=== PATIENT | male | born 2000 | race Caucasian/White ===

== ENCOUNTER 2020-06-02 19:53 | Emergency (ER) | payer OTHER, SELFPAY ==
[2020-06-02 19:59] VITALS: BP 182/87; PULSE 104; RESP 18; TEMP 36.3; O2SAT 95; BMI 37.5
--- NOTE | 2020-06-02 20:31 | ED.ABDPAIN ---
HPI - Abdominal Pain General Chief Complaint: Abdominal Pain Stated Complaint: abdomial pain Time Seen by Provider: 06/02/20 20:31 Source: patient Mode of arrival: ambulatory Limitations: no limitations History of Present Illness MD elicited complaint: abdominal pain Onset (ago): minute(s) (40) Pain Consistency: intermittent Location: diffuse Severity: mild Quality: cramping Radiation: epigastric Migration to: no migration Exacerbating factors: nothing Relieving factors: nothing Related Data Home Medications Medication Instructions Recorded Confirmed hydrochlorothiazide 12.5 mg capsule 12.5 mg PO QAM 03/21/20 Allergies Allergy/AdvReac Type Severity Reaction Status Date / Time No Known Allergies Allergy Unverified 03/07/20 16:54 [No Known Allergies*] Review of Systems Review of Systems REVIEW OF SYSTEMS: Pertinent positives and negatives are stated above in the history. GEN: no fevers, chills, fatigue HEENT: no nasal congestion, sore throat, ear pain NEURO: no headache, dizziness, focal weakness PULM: no cough, shortness of breath CV: no chest pain, palpitations, LE edema ABD: no nausea, vomiting, diarrhea : no dysuria, urgency, frequency SKIN: no rash ROS otherwise negative x 10 Physical Exam Vital Signs: Vital Signs: Last Vital Signs Temp 97.3 F 06/02/20 19:59 Pulse 104 H 06/02/20 19:59 Resp 18 06/02/20 19:59 BP 182/87 H 06/02/20 19:59 Pulse Ox 95 06/02/20 19:59 Body Mass Index 37.5 Appearance: Alert. Oriented X3. No acute distress. Eyes: Pupils equal, round and reactive to light. ENT: Pharynx normal. Neck: Normal inspection. Neck supple. CVS: Normal heart rate and rhythm. Pulses normal. Respiratory: No respiratory distress. Breath sounds normal. Abdomen: Soft , mild diffuse upper abdominal tenderness no right upper quadrant tenderness no mass palpable no CVA tenderness bowel sounds are present Skin: Skin warm and dry. Normal skin color. Normal skin turgor. Extremities: No lower extremity edema. Good range of movement Neuro: Oriented X 3. No motor deficit. No sensory deficit. Course Course Course Narrative: Patient has nonspecific abdominal pain no nausea/vomiting is taking p.o. fluids feeling much better now after Bentyl to discharge him home Discharge Plan Discharge Clinical Impression: Abdominal pain Patient Disposition: Home, Self-Care Instructions: Abdominal Pain (ED) Additional Instructions: Drink plenty of fluids Follow with PCP if any concerns PMFSH Past Medical History Medical History HTN (hypertension) Surgical History History of hernia surgery History of tonsillectomy Family History Family History Father Diabetes Hypertension Mother Diabetes Hypertension Maternal Grandmother Cancer Maternal Uncle Stroke Social History Social History Alcohol intake: never Smoked in Last 30 Days: No Use of substances other than those prescribed or required for medical reasons: No Advance Directives: No Advance Directives Information Provided: Yes
[2020-06-02] MEDS: Dicyclomine HCl 10 MG CAPSULE 20 MG PO (21:11)
== END 2020-06-02 22:17 | disposition home or self-care (01) ==
PROVIDERS: Emergency Provider Internal Medicine; PCP Internal Medicine
DX: R10.13 Epigastric pain (principal); R10.9 Unspecified abdominal pain; Z79.899 Other long term (current) drug therapy
CPT/HCPCS: 99283; 99284

== ENCOUNTER 2020-09-03 08:55 | Emergency (ER) | payer OTHER, SELFPAY ==
--- NOTE | ~2020-09-03 | CT_ITS ---
EXAMINATION: CT ABDOMEN AND PELVIS WITH CONTRAST CLINICAL INFORMATION: Right-sided abdominal pain COMPARISON: Previous abdominal ultrasound from earlier the same day TECHNIQUE: Multidetector volumetric images were obtained from the superior aspect of the liver through the pubic symphysis following administration 85 mL of Omnipaque 350 intravenous contrast. Sagittal and coronal reformatted images were obtained on the technologist's workstation. Oral contrast: Yes This CT examination was performed using dose optimization techniques as appropriate, variously including the following: *Automated exposure control *Adjustment of mA and/or kV according to patient size (this includes techniques or standardized protocols for targeted exams where dose is matched to indication/reason for exam; i.e. extremities or head) *Use of iterative reconstruction technique DLP: 1996 mGy-cm FINDINGS: LUNG BASES: The visualized lung bases are unremarkable. LIVER, GALLBLADDER, AND BILIARY TREE: The liver is low in attenuation suggestive of fatty infiltration. There are small gallstones in the gallbladder. The gallbladder is normal in size. The gallbladder wall does not appear thickened. There is no pericholecystic fluid. There is no intra or extrahepatic biliary duct dilatation. PANCREAS: Unremarkable. SPLEEN: Unremarkable. ADRENAL GLANDS: Unremarkable. KIDNEYS AND URETERS: The kidneys are normal in size, shape, and attenuation. No hydronephrosis, hydroureter, or calculi seen. No perinephric stranding. BLADDER: Unremarkable. GASTROINTESTINAL TRACT: The small and large bowel are unremarkable. The appendix is unremarkable. ABDOMINAL WALL: No significant hernia is appreciated. LYMPH NODES: There are small retroperitoneal lymph nodes in the abdomen and pelvis, small bowel mesentery lymph nodes and bilateral inguinal lymph nodes. No enlarged lymph nodes are seen. VASCULAR: Unremarkable. PELVIC VISCERA: Unremarkable. OSSEOUS STRUCTURES: Unremarkable. CT/CT abdomen pelvis w con IMPRESSION: Fatty liver. Small gallstones.
--- NOTE | ~2020-09-03 | US_ITS ---
EXAMINATION: US ABDOMEN LIMITED CLINICAL INFORMATION: Epigastric/right upper quadrant pain. COMPARISON: Previous abdominal ultrasound May 2019 TECHNIQUE: Real-time imaging of the right upper quadrant abdominal viscera. FINDINGS: PANCREAS: The head and body the pancreas are normal. The tail is not well visualized due to bowel gas. LIVER: The liver is normal in size. The liver contour is normal. Liver echotexture is increased. There is a hypoechoic area adjacent to the gallbladder, characteristic location of focal fatty sparing. No other focal liver lesion is seen. There is no intrahepatic biliary duct dilatation seen. GALLBLADDER: There are gallstones in the gallbladder. The gallbladder is normal in size. The gallbladder wall is normal. There is no pericholecystic fluid.. COMMON BILE DUCT: Normal in caliber measuring 0.4 cm in diameter. RIGHT KIDNEY: Normal. No hydronephrosis. No renal calculi or focal parenchymal lesions. The kidney measures 13.7 cm in maximum dimension. FREE FLUID: None. US/US abdomen limited IMPRESSION: Gallstones. Echogenic liver probably representing fatty infiltration. Limited visualization of the tail of the pancreas.
[2020-09-03 09:06] VITALS: BP 151/100; PULSE 112; RESP 18; TEMP 37.1; O2SAT 95; BMI 43.7
--- NOTE | 2020-09-03 09:20 | ED.ABDPAIN ---
HPI - Abdominal Pain General Chief Complaint: Abdominal Pain <William Green NP - Last Filed: 10/03/20 14:11> Stated Complaint: stomach pain <William Green NP - Last Filed: 10/03/20 14:11> Time Seen by Provider: 09/03/20 09:03 <William Green NP - Last Filed: 10/03/20 14:11> Source: patient <William Green NP - Last Filed: 10/03/20 14:11> Mode of arrival: ambulatory <William Green NP - Last Filed: 10/03/20 14:11> Limitations: no limitations <William Green NP - Last Filed: 10/03/20 14:11> History of Present Illness HPI narrative: Pleasant 20-year-old male with history of obesity BMI of 43 and history of hypertension he was on a hypertensive in the past but stopped taking him because he was told BP was okay he presents ambulatory with complaint of epigastric abdominal pain for the past 2 days. States he has history of similar in the past burning-like discomfort he woke up with it. Does have some associated nausea but no vomiting. There is no diarrhea, recent travel or sick contacts. <William Green NP - Last Filed: 10/03/20 14:11> Pertinent past history: none <William Green NP - Last Filed: 10/03/20 14:11> Pain Consistency: intermittent <William Green NP - Last Filed: 10/03/20 14:11> Location: epigastric <William Green NP - Last Filed: 10/03/20 14:11> Severity: moderate <William Green NP - Last Filed: 10/03/20 14:11> Quality: aching <William Green NP - Last Filed: 10/03/20 14:11> Migration to: epigastric <William Green NP - Last Filed: 10/03/20 14:11> Exacerbating factors: eating <William Green NP - Last Filed: 10/03/20 14:11> Relieving factors: nothing <William Green NP - Last Filed: 10/03/20 14:11> Associated symptoms: denies other symptoms <William Green NP - Last Filed: 10/03/20 14:11> Related Data Home Medications: Home Medications Medication Instructions Recorded Confirmed hydrochlorothiazide 12.5 mg capsule 12.5 mg PO QAM 03/21/20 09/09/20 Previous Rx's Medication Instructions Recorded nitrofurantoin monohyd/m-cryst 100 mg PO Q12H 5 Days #10 cap 09/03/20 [Macrobid] omeprazole magnesium [Prilosec OTC] 20 mg PO DAILY 14 Days #14 tab 09/03/20 ondansetron HCl [Zofran] 4 mg PO Q8H PRN #10 tab 09/03/20 psyllium husk 3.4 gram/5.4 gram 1 tbsp PO DAILY 30 Days #660 g 09/09/20 oral powder <William Green NP - Last Filed: 10/03/20 14:11> Allergies/Adverse Reactions: Allergies Allergy/AdvReac Type Severity Reaction Status Date / Time No Known Allergies Allergy Verified 09/16/20 14:56 [No Known Allergies*] <William Green NP - Last Filed: 10/03/20 14:11> Review of Systems Review of Systems Constitutional: No Weight loss, No Fever, No Chills, No Night Sweats, No Fatigue, No Malaise ENT/Mouth: No Hearing loss, No Ear Pain, No Nasal Congestion, No Sinus Pain, No Hoarseness, No sore throat, No Rhinorrhea, No Swallowing Difficulty Eyes: No Eye Pain, No Swelling, No Redness, No Foreign Body, No Discharge, No Vision Changes Cardiovascular: No Chest Pain, No SOB, No Dyspnea on Exertion, No Orthopnea, No Edema, No Palpitations Respiratory: No Cough, No Sputum, No Wheezing, No Smoke Exposure, No Dyspnea Gastrointestinal: + Nausea, No Vomiting, No Diarrhea, No Constipation, + abdominal Pain, No Hematochezia, No Melena Genitourinary: no irregular bleeding, No Dysuria, No Urinary Frequency, No Hematuria, No Urinary Incontinence, No Urgency, No Flank Pain, No Urinary Flow Changes, No Hesitancy Musculoskeletal: No joint pain, No Myalgias, No Joint Swelling Skin: No Skin Lesions, No rash Neuro: No Weakness, No Numbness, No Paresthesias, No Loss of Consciousness, No Dizziness, No Headache Psych: No Social Issues Heme/Lymph: No Bruising, No Bleeding,No Lymphadenopathy Endocrine: No Polyuria, No Polydipsia, No Temperature Intolerance <William Green NP - Last Filed: 10/03/20 14:11> Yes all other systems are reviewed and are negative <William Green NP - Last Filed: 10/03/20 14:11> Physical Exam Vital Signs: Vital Signs: Last Vital Signs Temp 98.7 F 09/03/20 09:06 Pulse 112 H 09/03/20 09:06 Resp 09/03/20 12:00 BP 151/100 H 09/03/20 09:06 Pulse Ox 98 09/03/20 12:00 Body Mass Index 43.7 Reviewed <William Green NP - Last Filed: 10/03/20 14:11> Vital Signs: Last Vital Signs Temp 98.7 F 09/03/20 09:06 Pulse 112 H 09/03/20 09:06 Resp 09/03/20 12:00 BP 151/100 H 09/03/20 09:06 Pulse Ox 98 09/03/20 12:00 Body Mass Index 43.7 <Shiraz Das MD - Last Filed: 10/12/20 07:23> Const: General: cooperative; No acute distress or intoxicated appearing <William Green NP - Last Filed: 10/03/20 14:11> Nutritional Appearance: obese <William Green NP - Last Filed: 10/03/20 14:11> Orientation/consciousness: patient oriented x3 <William Green NP - Last Filed: 10/03/20 14:11> HENMT: Head: Yes normal to inspection <William Green NP - Last Filed: 10/03/20 14:11> Ears: hearing grossly normal bilaterally <William Green NP - Last Filed: 10/03/20 14:11> Eyes: General: appearance normal, both eyes and all related structures <William Green NP - Last Filed: 10/03/20 14:11> Visual Newby: normal visual newby by confrontation <William Green NP - Last Filed: 10/03/20 14:11> Neck: Neck: Yes normal visual inspection, No positive Brudzinski's sign, No positive Kernig's sign and No tender <[facility] Peter - Last Filed: 10/03/20 14:11> Thyroid: Thyroid normal <[facility] Peter [facility] Last Filed: 10/03/20 14:11> Chest: Chest palpation & inspection: normal inspection of the chest <[facility] Peter [facility] Last Filed: 10/03/20 14:11> Resp: Effort & Inspection: normal respiratory effort <[facility] Green - Last Filed: 10/03/20 14:11> Auscultation: clear to auscultation bilaterally <[facility] Green - Last Filed: 10/03/20 14:11> Cardio: Jugular venous distension: no JVD <[facility] Green [facility] Last Filed: 10/03/20 14:11> Rhythm: regular rhythm <[facility] Green [facility] Last Filed: 10/03/20 14:11> Heart sounds: S1 normal heart sound present and S2 normal heart sound present <[facility] Green - Last Filed: 10/03/20 14:11> GI: Inspection: Yes normal to inspection <[facility] Green - Last Filed: 10/03/20 14:11> Palpation (GI): Soft to palpation and Tenderness to palpation present (GI) in the epigastrum <[facility] Green - Last Filed: 10/03/20 14:11> Percussion: Yes normal to percussion <[facility] Green - Last Filed: 10/03/20 14:11> Auscultation: normal bowel sounds <[facility] Green - Last Filed: 10/03/20 14:11> : General: Yes no CVA tenderness <[facility] Green - Last Filed: 10/03/20 14:11> Back/Spine/Pelvis: Back: no CVA tenderness <[facility] Green - Last Filed: 10/03/20 14:11> Skin: General skin exam: no rashes or lesions noted <[facility] Green - Last Filed: 10/03/20 14:11> Neuro: General: patient oriented x3 <[facility] Green - Last Filed: 10/03/20 14:11> Extrem: General: Yes normal to inspection <William Green NP - Last Filed: 10/03/20 14:11> Course Course Course Narrative: I have reviewed the chart <Shiraz Das MD - Last Filed: 10/12/20 07:23> Reevaluation(s) Reevaluation #1: Symptoms resolved after GI cocktail. Gallstones on ultrasound with echogenic liver probably representing fatty infiltrate. Without evidence of cholecystitis, abdominal pelvis CT shows small gallstones without evidence of cholecystitis. Fatty liver. He feels much better would like to go home. Encouraged to take his blood pressure medications with follow-up closely with his primary care doctor and also General surgery. Educated on the need for balance diet, low-fat diet, need for follow-up with general surgeon, return and follow-up instructions. He is otherwise well nontoxic appearing tolerating p.o. intake well. Stable for discharge. <William Green NP - Last Filed: 10/03/20 14:11> MDM - Abdominal Pain Medical Records Attestation: I reviewed the patient's medical records. <William Green NP - Last Filed: 10/03/20 14:11> Lab Data Attestation: I reviewed the patient's lab results. <William Green NP - Last Filed: 10/03/20 14:11> Result diagrams: : 09/03/20 09:33 09/03/20 09:33 <William Green NP - Last Filed: 10/03/20 14:11> Labs: Lab Results 09/03/20 09/03/20 09/03/20 Range/Units 09:33 09:33 09:33 WBC 9.5 (4.8-10.8) X10*3/uL RBC 5.19 (4.60-5.80) X10*6/uL Hgb 13.3 L (14.0-18.0) g/dl Hct 41.8 L (42-52) % MCV 80.5 (80-98) fL MCH 25.6 L (27.0-33.0) pg MCHC 31.8 (31.0-36.0) g/dl RDW 14.9 (11.0-16.0) % Plt Count 436 H (160-400) X10*3/uL MPV 9.9 (9.4-12.4) fL Immature Gran % (Auto) 0.2 (0.0-0.4) % Neut % (Auto) 73.3 H (45-73) % Lymph % (Auto) 15.1 L (20-40) % [place] % (Auto) 9.7 (2-11) % Eos % (Auto) 1.2 (0-4) % Baso % (Auto) 0.5 (0-2) % Lymph # (Auto) 1.4 (1.2-4.9) X10*3/uL [place] # (Auto) 0.9 (0.1-1.2) X10*3/uL Eos # (Auto) 0.1 (0.0-0.4) X10*3/uL Baso # (Auto) 0.1 (0.0-0.2) X10*3/uL Abs Immat Gran (auto) 0.02 (0.00-0.03) X10*3/uL Absolute Neuts (auto) 7.0 (2.0-8.3) X10*3/uL Absolute Nucleated RBC 0.000 (0.0-0.012) X10*3/uL Nucleated RBC % (auto) 0.0 (0.0-0.2) /100WBC Sodium 136 (135-145) mmol/L Potassium 4.3 (3.3-5.1) mmol/L Chloride 102 (96-108) mmol/L Carbon Dioxide 27 (22-29) mmol/L Anion Gap 11 L (12-20) BUN 7 L (9-16) mg/dL Creatinine 0.76 (0.5-1.4) mg/dL Estim Creat Clear Calc 246.2 Estimated GFR > 60 Random Glucose 107 (60-115) mg/dL Calcium 8.9 (8.4-10.2) mg/dL Total Bilirubin 3.3 H (0.0-1.0) mg/dL AST 316 H (5-37) U/L ALT 402 H (0-40) U/L Alkaline Phosphatase 132 H (39-117) U/L Total Protein 7.4 (6.5-8.0) g/dL Albumin 4.1 (3.5-5.0) g/dL Lipase 35 (8-78) U/L Urine Color SHANTA Urine Appearance HAZY Urine pH 6.5 (5.0-8.0) Ur Specific [place] 1.025 (1.005-1.025) Urine Protein 1+ H (NEG-TRACE) MG/DL Urine Glucose (UA) NEG (NEG) MG/DL Urine Ketones NEG (NEG) MG/DL Urine Blood 1+ H (NEG) Urine Nitrite POS H (NEG) Ur Leukocyte Esterase NEG (NEG) Urine RBC 5-9 H (0) /HPF Urine WBC 0-2 (0-4) /HPF Ur Squamous Epith Cells TRACE /LPF Urine Bacteria TRACE /LPF Urine Mucus 2+ /LPF Chlam trachomat DNA PCR (Not Detect.) N.gonorrhoeae DNA (PCR) (Not Detect.) 09/03/20 Range/Units 14:41 WBC (4.8-10.8) X10*3/uL RBC (4.60-5.80) X10*6/uL Hgb (14.0-18.0) g/dl Hct (42-52) % MCV (80-98) fL MCH (27.0-33.0) pg MCHC (31.0-36.0) g/dl RDW (11.0-16.0) % Plt Count (160-400) X10*3/uL MPV (9.4-12.4) fL Immature Gran % (Auto) (0.0-0.4) % Neut % (Auto) (45-73) % Lymph % (Auto) (20-40) % [place] % (Auto) (2-11) % Eos % (Auto) (0-4) % Baso % (Auto) (0-2) % Lymph # (Auto) (1.2-4.9) X10*3/uL [place] # (Auto) (0.1-1.2) X10*3/uL Eos # (Auto) (0.0-0.4) X10*3/uL Baso # (Auto) (0.0-0.2) X10*3/uL Abs Immat Gran (auto) (0.00-0.03) X10*3/uL Absolute Neuts (auto) (2.0-8.3) X10*3/uL Absolute Nucleated RBC (0.0-0.012) X10*3/uL Nucleated RBC % (auto) (0.0-0.2) /100WBC Sodium (135-145) mmol/L Potassium (3.3-5.1) mmol/L Chloride (96-108) mmol/L Carbon Dioxide (22-29) mmol/L Anion Gap (12-20) BUN (9-16) mg/dL Creatinine (0.5-1.4) mg/dL Estim Creat Clear Calc Estimated GFR Random Glucose (60-115) mg/dL Calcium (8.4-10.2) mg/dL Total Bilirubin (0.0-1.0) mg/dL AST (5-37) U/L ALT (0-40) U/L Alkaline Phosphatase (39-117) U/L Total Protein (6.5-8.0) g/dL Albumin (3.5-5.0) g/dL Lipase (8-78) U/L Urine Color Urine Appearance Urine pH (5.0-8.0) Ur Specific [place] (1.005-1.025) Urine Protein (NEG-TRACE) MG/DL Urine Glucose (UA) (NEG) MG/DL Urine Ketones (NEG) MG/DL Urine Blood (NEG) Urine Nitrite (NEG) Ur Leukocyte Esterase (NEG) Urine RBC (0) /HPF Urine WBC (0-4) /HPF Ur Squamous Epith Cells /LPF Urine Bacteria /LPF Urine Mucus /LPF Chlam trachomat DNA PCR NOT DETECTED (Not Detect.) N.gonorrhoeae DNA (PCR) NOT DETECTED (Not Detect.) <William Green ECONOMIC ANALYST - Last Filed: 10/03/20 14:11> Lab Results 09/03/20 09/03/20 09/03/20 Range/Units 09:33 09:33 09:33 WBC 9.5 (4.8-10.8) X10*3/uL RBC 5.19 (4.60-5.80) X10*6/uL Hgb 13.3 L (14.0-18.0) g/dl Hct 41.8 L (42-52) % MCV 80.5 (80-98) fL MCH 25.6 L (27.0-33.0) pg MCHC 31.8 (31.0-36.0) g/dl RDW 14.9 (11.0-16.0) % Plt Count 436 H (160-400) X10*3/uL MPV 9.9 (9.4-12.4) fL Immature Gran % (Auto) 0.2 (0.0-0.4) % Neut % (Auto) 73.3 H (45-73) % Lymph % (Auto) 15.1 L (20-40) % [place] % (Auto) 9.7 (2-11) % Eos % (Auto) 1.2 (0-4) % Baso % (Auto) 0.5 (0-2) % Lymph # (Auto) 1.4 (1.2-4.9) X10*3/uL [place] # (Auto) 0.9 (0.1-1.2) X10*3/uL Eos # (Auto) 0.1 (0.0-0.4) X10*3/uL Baso # (Auto) 0.1 (0.0-0.2) X10*3/uL Abs Immat Gran (auto) 0.02 (0.00-0.03) X10*3/uL Absolute Neuts (auto) 7.0 (2.0-8.3) X10*3/uL Absolute Nucleated RBC 0.000 (0.0-0.012) X10*3/uL Nucleated RBC % (auto) 0.0 (0.0-0.2) /100WBC Sodium 136 (135-145) mmol/L Potassium 4.3 (3.3-5.1) mmol/L Chloride 102 (96-108) mmol/L Carbon Dioxide 27 (22-29) mmol/L Anion Gap 11 L (12-20) BUN 7 L (9-16) mg/dL Creatinine 0.76 (0.5-1.4) mg/dL Estim Creat Clear Calc 246.2 Estimated GFR > 60 Random Glucose 107 (60-115) mg/dL Calcium 8.9 (8.4-10.2) mg/dL Total Bilirubin 3.3 H (0.0-1.0) mg/dL AST 316 H (5-37) U/L ALT 402 H (0-40) U/L Alkaline Phosphatase 132 H (39-117) U/L Total Protein 7.4 (6.5-8.0) g/dL Albumin 4.1 (3.5-5.0) g/dL Lipase 35 (8-78) U/L Urine Color SHANTA Urine Appearance HAZY Urine pH 6.5 (5.0-8.0) Ur Specific [place] 1.025 (1.005-1.025) Urine Protein 1+ H (NEG-TRACE) MG/DL Urine Glucose (UA) NEG (NEG) MG/DL Urine Ketones NEG (NEG) MG/DL Urine Blood 1+ H (NEG) Urine Nitrite POS H (NEG) Ur Leukocyte Esterase NEG (NEG) Urine RBC 5-9 H (0) /HPF Urine WBC 0-2 (0-4) /HPF Ur Squamous Epith Cells TRACE /LPF Urine Bacteria TRACE /LPF Urine Mucus 2+ /LPF Chlam trachomat DNA PCR (Not Detect.) N.gonorrhoeae DNA (PCR) (Not Detect.) 09/03/20 Range/Units 14:41 WBC (4.8-10.8) X10*3/uL RBC (4.60-5.80) X10*6/uL Hgb (14.0-18.0) g/dl Hct (42-52) % MCV (80-98) fL MCH (27.0-33.0) pg MCHC (31.0-36.0) g/dl RDW (11.0-16.0) % Plt Count (160-400) X10*3/uL MPV (9.4-12.4) fL Immature Gran % (Auto) (0.0-0.4) % Neut % (Auto) (45-73) % Lymph % (Auto) (20-40) % [place] % (Auto) (2-11) % Eos % (Auto) (0-4) % Baso % (Auto) (0-2) % Lymph # (Auto) (1.2-4.9) X10*3/uL [place] # (Auto) (0.1-1.2) X10*3/uL Eos # (Auto) (0.0-0.4) X10*3/uL Baso # (Auto) (0.0-0.2) X10*3/uL Abs Immat Gran (auto) (0.00-0.03) X10*3/uL Absolute Neuts (auto) (2.0-8.3) X10*3/uL Absolute Nucleated RBC (0.0-0.012) X10*3/uL Nucleated RBC % (auto) (0.0-0.2) /100WBC Sodium (135-145) mmol/L Potassium (3.3-5.1) mmol/L Chloride (96-108) mmol/L Carbon Dioxide (22-29) mmol/L Anion Gap (12-20) BUN (9-16) mg/dL Creatinine (0.5-1.4) mg/dL Estim Creat Clear Calc Estimated GFR Random Glucose (60-115) mg/dL Calcium (8.4-10.2) mg/dL Total Bilirubin (0.0-1.0) mg/dL AST (5-37) U/L ALT (0-40) U/L Alkaline Phosphatase (39-117) U/L Total Protein (6.5-8.0) g/dL Albumin (3.5-5.0) g/dL Lipase (8-78) U/L Urine Color Urine Appearance Urine pH (5.0-8.0) Ur Specific [place] (1.005-1.025) Urine Protein (NEG-TRACE) MG/DL Urine Glucose (UA) (NEG) MG/DL Urine Ketones (NEG) MG/DL Urine Blood (NEG) Urine Nitrite (NEG) Ur Leukocyte Esterase (NEG) Urine RBC (0) /HPF Urine WBC (0-4) /HPF Ur Squamous Epith Cells /LPF Urine Bacteria /LPF Urine Mucus /LPF Chlam trachomat DNA PCR NOT DETECTED (Not Detect.) N.gonorrhoeae DNA (PCR) NOT DETECTED (Not Detect.) <Shiraz Das MD - Last Filed: 10/12/20 07:23> Imaging Data Abdominal/pelvis CT with IV contrast: Radiologist's impression: [address] [id number] Scan ReportSigned Patient: Rojas Avelar#: [id number]: 2000Acct:[id number]/Sex: 20 / MADM Date: 09/03/20Loc: HO.EDAttending Dr: Ordering Physician: William Green NP Date of Service: 09/03/20 Procedure(s): CT abdomen pelvis w con Accession Number(s): [id number] cc: William Green ECONOMIC ANALYST~ EXAMINATION: CT ABDOMEN AND PELVIS WITH CONTRAST CLINICAL INFORMATION: Right-sided abdominal pain COMPARISON: Previous abdominal ultrasound from earlier the same day TECHNIQUE: Multidetector volumetric images were obtained from the superior aspect of the liver through the pubic symphysis following administration 85 mL of Omnipaque 350 intravenous contrast. Sagittal and coronal reformatted images were obtained on the technologist's workstation. Oral contrast: Yes This CT examination was performed using dose optimization techniques as appropriate, variously including the following: *Automated exposure control *Adjustment of mA and/or kV according to patient size (this includes techniques or standardized protocols for targeted exams where dose is matched to indication/reason for exam; i.e. extremities or head) *Use of iterative reconstruction technique DLP: 1997 mGy-cm FINDINGS: LUNG BASES: The visualized lung bases are unremarkable. LIVER, GALLBLADDER, AND BILIARY TREE: The liver is low in attenuation suggestive of fatty infiltration. There are small gallstones in the gallbladder. The gallbladder is normal in size. The gallbladder wall does not appear thickened. There is no pericholecystic fluid. There is no intra or extrahepatic biliary duct dilatation. PANCREAS: Unremarkable. SPLEEN: Unremarkable. ADRENAL GLANDS: Unremarkable. KIDNEYS AND URETERS: The kidneys are normal in size, shape, and attenuation. No hydronephrosis, hydroureter, or calculi seen. No perinephric stranding. BLADDER: Unremarkable. GASTROINTESTINAL TRACT: The small and large bowel are unremarkable. The appendix is unremarkable. ABDOMINAL WALL: No significant hernia is appreciated. LYMPH NODES: There are small retroperitoneal lymph nodes in the abdomen and pelvis, small bowel mesentery lymph nodes and bilateral inguinal lymph nodes. No enlarged lymph nodes are seen. VASCULAR: Unremarkable. PELVIC VISCERA: Unremarkable. OSSEOUS STRUCTURES: Unremarkable. CT/CT abdomen pelvis w con IMPRESSION: Fatty liver. Small gallstones. Dictated By:LAMAR VALLES MDSigned By:<Electronically signed by LAMAR VALLES MD in [place]>09/03/20 1249 DD/ 1103TD/TT: Conductor/Brakeman: COLTEN <William Green NP - Last Filed: 10/03/20 14:11> Abdominal ultrasound: Radiologist's impression: [address] [id number] ReportSigned Patient: Rojas Avelar#: [id number]: 2000Acct:[id number]/Sex: 20 / MADM Date: 09/03/20Loc: HO.EDAttending Dr: Ordering Physician: William Green NP Date of Service: 09/03/20 Procedure(s): US abdomen limited Accession Number(s): [id number] cc: William Green NP~ EXAMINATION: US ABDOMEN LIMITED CLINICAL INFORMATION: Epigastric/right upper quadrant pain. COMPARISON: Previous abdominal ultrasound May 2019 TECHNIQUE: Real-time imaging of the right upper quadrant abdominal viscera. FINDINGS: PANCREAS: The head and body the pancreas are normal. The tail is not well visualized due to bowel gas. LIVER: The liver is normal in size. The liver contour is normal. Liver echotexture is increased. There is a hypoechoic area adjacent to the gallbladder, characteristic location of focal fatty sparing. No other focal liver lesion is seen. There is no intrahepatic biliary duct dilatation seen. GALLBLADDER: There are gallstones in the gallbladder. The gallbladder is normal in size. The gallbladder wall is normal. There is no pericholecystic fluid.. COMMON BILE DUCT: Normal in caliber measuring 0.4 cm in diameter. RIGHT KIDNEY: Normal. No hydronephrosis. No renal calculi or focal parenchymal lesions. The kidney measures 13.7 cm in maximum dimension. FREE FLUID: None. US/US abdomen limited IMPRESSION: Gallstones. Echogenic liver probably representing fatty infiltration. Limited visualization of the tail of the pancreas. Dictated By:LAMAR VALLES MDSigned By:<Electronically signed by LAMAR VALLES MD in [place]>09/03/20 1207 DD/ 1103TD/TT: Conductor/Brakeman: COLTEN <William Green NP - Last Filed: 10/03/20 14:11> Discharge Plan Discharge Clinical Impression: Gallstones, Transaminitis, Acute UTI <William Green NP - Last Filed: 10/03/20 14:11> Patient Disposition: Home, Self-Care <William Green NP - Last Filed: 10/03/20 14:11> Instructions: Gallstones (ED), Acute Nausea and Vomiting (ED) <William Green NP - Last Filed: 10/03/20 14:11> Additional Instructions: Your blood work showed today that your liver function tests were elevated The CT scan/ultrasound showed gallstones but no evidence of infection or inflammation of the gallbladder Your symptoms are combination of reflux and likely pain from the gallstones I have spoken to our Gastroenterology team recommends that you follow-up closely in the office and return to emergency room based on the precautions that I have reviewed with you. Push fluids Gradually increase her diet as tolerated Avoid any heavy greasy meals, caffeine, caffeinated drinks Eat small portions, avoid eating large meals specifically 2 hours before going to bed Take her anti acid medication in the morning on empty stomach with 8 oz couple water and wait at least 30 minutes to 1 hour before eating breakfast Please follow-up with general surgery/international coordinator as discussed Return to the emergency room if you have any worsening in your symptoms including abdominal pain, vomiting, fever, chest pain, shortness of breath Thank you <William Green NP - Last Filed: 10/03/20 14:11> Prescriptions: New nitrofurantoin monohyd/m-cryst [Macrobid] 100 mg capsule 100 mg PO Q12H 5 Days Qty: 10 RF: 0 ondansetron HCl [Zofran] 4 mg tablet 4 mg PO Q8H PRN (Reason: nausea and vomiting) Qty: 10 RF: 0 omeprazole magnesium [Prilosec OTC] 20 mg tablet,delayed release (DR/EC) 20 mg PO DAILY 14 Days Qty: 14 RF: 0 No Action hydrochlorothiazide 12.5 mg capsule 12.5 mg PO QAM RF: 0 Metamucil 3.4 gram/5.4 gram powder 1 tbsp PO DAILY 30 Days Qty: 660 RF: 0 <William Green NP - Last Filed: 10/03/20 14:11> Referrals: Fran Cheema MD [Primary Care Provider] - 1 week Tsering Vera MD [Physician] - 1 week Gregg Lockett MD [Physician] - 3 days <William Green NP - Last Filed: 10/03/20 14:11> Interventions: ED Discharge Assessment Last Done: 09/03/20 14:52 <William Green NP - Last Filed: 10/03/20 14:11> Discharge Date/Time: 09/03/20 14:56 <William Green NP - Last Filed: 10/03/20 14:11> PMFSH Past Medical History Medical History: Medical History Abnormal liver enzymes [facility] discharge follow-up HTN (hypertension) Hypertension Morbid obesity Morbid obesity <William Green NP - Last Filed: 10/03/20 14:11> Surgical History: Surgical History History of hernia surgery History of tonsillectomy <William Green NP - Last Filed: 10/03/20 14:11> Family History Family History: Family History Father Diabetes Hypertension Mother Diabetes Hypertension Maternal Grandmother Cancer Maternal Uncle Stroke <William Green NP - Last Filed: 10/03/20 14:11> Social History Social History: Social History Alcohol intake: never Smoking Status: Never smoker <William Green NP - Last Filed: 10/03/20 14:11>
[2020-09-03] MEDS: 0.9 % Sodium Chloride 500 ML IV (09:33)
[2020-09-03] MEDS: ondansetron HCL 4 MG/2 ML VIAL IVPUSH (09:44)
[2020-09-03] MEDS: Magnesium Hydrox/Alum Hydrox 30 ML ORAL.SUSP PO (09:44)
[2020-09-03] MEDS: Lidocaine HCl Viscous 2 % 15 ML SOLUTION 10 ML MUCOUS MEM (09:45)
[2020-09-03 09:48] LABS: MANUAL DIFF FLAG NO
[2020-09-03 09:52] LABS: Basophils Absolute Auto 0.1 X10*3/uL (0.0-0.2); Basophils Percent Auto 0.5 % (0-2); Eosinophils Absolute Auto 0.1 X10*3/uL (0.0-0.4); Eosinophils Percent Auto 1.2 % (0-4); Hematocrit 41.8 % (42-52); Hemoglobin 13.3 g/dl (14.0-18.0); Imm Gran Abs Auto 0.02 X10*3/uL (0.00-0.03); Imm Gran Pct Auto 0.2 % (0.0-0.4); Lymphocytes Absolute Auto 1.4 X10*3/uL (1.2-4.9); Lymphocytes Percent Auto 15.1 % (20-40); Mean Corpuscular HGB Conc 31.8 g/dl (31.0-36.0); Mean Corpuscular Hemoglobin 25.6 pg (27.0-33.0); Mean Corpuscular Volume 80.5 fL (80-98); Mean Platelet Volume 9.9 fL (9.4-12.4); Monocytes Absolute Auto 0.9 X10*3/uL (0.1-1.2); Monocytes Percent Auto 9.7 % (2-11); Neutrophils Percent Auto 73.3 % (45-73); Platelet Count 436 X10*3/uL (160-400); Red Blood Count 5.19 X10*6/uL (4.60-5.80); Red Cell Distribution Width 14.9 % (11.0-16.0); White Blood Count 9.5 X10*3/uL (4.8-10.8)
[2020-09-03 10:01] LABS: Glucose Urine UA NEG (NEG); Leukocyte Esterase Urine NEG (NEG); Nitrite Urine POS (NEG); PH 6.5 (5.0-8.0); Specific Gravity - Urine 1.025 (1.005-1.025); UACC Culture Trigger YES; Urine Blood 1+ (NEG); Urine Ketones NEG (NEG); Urine Protein 1+ MG/DL (NEG-TRACE)
[2020-09-03 10:05] LABS: Appearance Urine HAZY; Color Urine AMBER
[2020-09-03 10:14] LABS: Bacteria Urine TRACE /LPF; Mucus Urine 2+ /LPF; Squamous Epithelial Cell Urine TRACE /LPF; UACC CULT YES; WBC Urine 0-2 /HPF (0-4)
[2020-09-03 10:20] LABS: Alanine Aminotransferase 402 U/L (0-40); Albumin Level 4.1 g/dL (3.5-5.0); Alkaline Phosphatase 132 U/L (39-117); Anion Gap 11 (12-20); Aspartate Amino Transferase 316 U/L (5-37); Bilirubin Total 3.3 mg/dL (0.0-1.0); Blood Urea Nitrogen 7 mg/dL (9-16); Calcium 8.9 mg/dL (8.4-10.2); Carbon Dioxide 27 mmol/L (22-29); Chloride 102 mmol/L (96-108); Creatinine Clr Calc Pharmacy 246.2; Estimated Glomerular Filt Rate > 60; Glucose Random 107 mg/dL (60-115); Lipase 35 U/L (8-78); Potassium 4.3 mmol/L (3.3-5.1); Sodium 136 mmol/L (135-145); Total Protein 7.4 g/dL (6.5-8.0)
[2020-09-03 12:00] VITALS: RESP 16; O2SAT 98
[2020-09-03 16:40] LABS: CT PCR NOT DETECTED (Not Detect.); NG PCR NOT DETECTED (Not Detect.)
== END 2020-09-03 14:56 | disposition home or self-care (01) ==
PROVIDERS: Nurse Practitioner Primary Care; Emergency Provider Emergency Medicine; PCP Internal Medicine
DX: K80.80 Other cholelithiasis without obstruction (principal); R74.01 Elevation of levels of liver transaminase levels; R11.2 Nausea with vomiting, unspecified; I10 Essential (primary) hypertension
CPT/HCPCS: 36415; 74177; 76705; 80053; 81001; 83690; 85025; 87086; 87491; 87591; 96361; 96374; 99284; J2405; Q9967

== ENCOUNTER → 2020-09-16 14:45 | Outpatient (BNVA) | payer OTHER, SELFPAY | PROVIDERS: PCP Internal Medicine; Visit Provider Surgery | DX: K80.20 Calculus of gallbladder without cholecystitis without obstruction (principal); E66.01 Morbid (severe) obesity due to excess calories; R74.8 Abnormal levels of other serum enzymes | CPT/HCPCS: 99202 ==

== ENCOUNTER → 2020-10-14 09:29 | Outpatient (BNVA) | payer OTHER, SELFPAY | PROVIDERS: PCP Internal Medicine; Visit Provider Internal Medicine Gastroenterology ==

== ENCOUNTER 2020-12-03 16:50 | Emergency (ER) | payer OTHER, SELFPAY ==
--- NOTE | 2020-12-03 | ECG_ITS ---
Test Reason : CHESTPAIN Blood Pressure : / mmHG Vent. Rate : 099 BPM Atrial Rate : 099 BPM P-R Int : 120 ms QRS Dur : 108 ms QT Int : 344 ms P-R-T Axes : 026 004 077 degrees QTc Int : 441 ms Normal sinus rhythm Nonspecific T wave abnormality Abnormal ECG When compared with ECG of 12-JUN-2019 04:27, T wave inversion no longer evident in Lateral leads Referred By: Kilo Mendez Electronically Signed By:AJITH MELISSA
--- NOTE | ~2020-12-03 | XR_ITS ---
EXAMINATION: XR CHEST CLINICAL INFORMATION: Chest pain COMPARISON: None TECHNIQUE: Frontal view of the chest was obtained. FINDINGS: No significant abnormality is noted involving the heart, lungs, mediastinum, bony thorax or soft tissues. XR/XR chest 1V IMPRESSION: Unremarkable examination.
[2020-12-03 17:21] VITALS: BP 198/97; PULSE 104; RESP 18; TEMP 35; O2SAT 98; BMI 64.4
--- NOTE | 2020-12-03 17:26 | PC.NURSE ---
[facility] AWARE OF CURRENT VITALS
[2020-12-03 18:05] LABS: MANUAL DIFF FLAG NO
[2020-12-03 18:10] LABS: Basophils Percent Auto 0.4 % (0-2); Eosinophils Absolute Auto 0.1 X10*3/uL (0.0-0.4); Eosinophils Percent Auto 0.6 % (0-4); Hematocrit 40.4 % (42-52); Hemoglobin 12.8 g/dl (14.0-18.0); Imm Gran Abs Auto 0.03 X10*3/uL (0.00-0.03); Imm Gran Pct Auto 0.4 % (0.0-0.4); Lymphocytes Absolute Auto 1.2 X10*3/uL (1.2-4.9); Lymphocytes Percent Auto 15.5 % (20-40); Mean Corpuscular HGB Conc 31.7 g/dl (31.0-36.0); Mean Corpuscular Hemoglobin 25.4 pg (27.0-33.0); Mean Corpuscular Volume 80.3 fL (80-98); Mean Platelet Volume 9.7 fL (9.4-12.4); Monocytes Absolute Auto 0.9 X10*3/uL (0.1-1.2); Monocytes Percent Auto 11.3 % (2-11); Neutrophils Absolute Auto 5.7 X10*3/uL (2.0-8.3); Neutrophils Percent Auto 71.8 % (45-73); Platelet Count 383 X10*3/uL (160-400); Red Blood Count 5.03 X10*6/uL (4.60-5.80); Red Cell Distribution Width 15.4 % (11.0-16.0); White Blood Count 7.9 X10*3/uL (4.8-10.8)
[2020-12-03 18:29] LABS: Anion Gap 12 (12-20); Blood Urea Nitrogen 8 mg/dL (9-16); Calcium 9.2 mg/dL (8.4-10.2); Carbon Dioxide 26 mmol/L (22-29); Chloride 106 mmol/L (96-108); Creatinine Clr Calc Pharmacy 332.4; Estimated Glomerular Filt Rate > 60; Glucose Random 102 mg/dL (60-115); Potassium 4.4 mmol/L (3.3-5.1); Sodium 140 mmol/L (135-145)
[2020-12-03 18:35] LABS: Troponin-I High Sensitivity < 3.5 ng/L (<3.5-35.0)
[2020-12-03 21:02] LABS: Troponin-I High Sensitivity < 3.5 ng/L (<3.5-35.0)
[2020-12-03 22:36] VITALS: BP 154/75; PULSE 103; RESP 16
--- NOTE | 2020-12-03 22:42 | ED_ITS ---
HPI - Chest Pain General Chief Complaint: Chest Pain Stated Complaint: cp, abd pain Time Seen by Provider: 12/03/20 22:42 Source: patient Mode of arrival: ambulatory Limitations: no limitations History of Present Illness HPI narrative: Patient obese with history of her gallstones noticed pain in epigastric area since morning going to the mid chest with no nausea vomiting or diarrhea no radiation of pain to the left arm which are no diaphoresis. MD complaint: chest pain Related Data Home Medications Medication Instructions Recorded Confirmed hydrochlorothiazide 12.5 mg capsule 12.5 mg PO QAM 03/21/20 09/09/20 Previous Rx's Medication Instructions Recorded nitrofurantoin monohyd/m-cryst 100 mg PO Q12H 5 Days #10 cap 09/03/20 [Macrobid] omeprazole magnesium [Prilosec OTC] 20 mg PO DAILY 14 Days #14 tab 09/03/20 ondansetron HCl [Zofran] 4 mg PO Q8H PRN #10 tab 09/03/20 psyllium husk 3.4 gram/5.4 gram 1 tbsp PO DAILY 30 Days #660 g 09/09/20 oral powder Allergies Allergy/AdvReac Type Severity Reaction Status Date / Time No Known Allergies Allergy Verified 10/14/20 09:29 [No Known Allergies*] Review of Systems Review of Systems: Constitutional : No Weight loss, No Fever, No Chills ENT/Mouth : No sore throat, No Rhinorrhea Eyes: No Eye Pain, No Swelling Cardiovascular : + Chest Pain, no palpitations Respiratory : No Cough, No Sputum, no shortness of breath Gastrointestinal : no Nausea, No Vomiting, No Diarrhea, No abdominal Pain, no black stools Genitourinary : No Dysuria, No Urinary Frequency Musculoskeletal : No joint pain, No Myalgias, No Joint Swelling Skin : No Skin Lesions, No rash Neuro : No Weakness, No Numbness, No Dizziness, No Headache Psych : No Anxiety/Panic, No Depression Heme/Lymph: No Bruising, No Lymphadenopathy Endocrine : No Polyuria, No Polydipsia All other systems reviewed and are negative FOR[facility]LY [facility] Past Medical History Medical History Abnormal liver enzymes [facility] discharge follow-up HTN (hypertension) Hypertension Morbid obesity Morbid obesity Surgical History History of hernia surgery History of tonsillectomy Family History Family History Father Diabetes Hypertension Mother Diabetes Hypertension Maternal Grandmother Cancer Maternal Uncle Stroke Social History Social History Household Members: Family Alcohol intake: current Alcohol intake frequency: holidays/special occasions only Substance Use Type: Marijuana Advance Directives: No Advance Directives Information Provided: Yes Physical Exam Vital Signs: Vital Signs: Last Vital Signs Temp 95.0 F L 12/03/20 17:21 Pulse 103 H 12/03/20 22:36 Resp 16 12/03/20 22:36 BP 154/75 H 12/03/20 22:36 Pulse Ox 98 12/03/20 17:21 Body Mass Index 64.4 Appearance: Alert. Oriented X3. No acute distress. Eyes: PERRLA, No Nystagmus ENT: Pharynx normal. Oral Mucosa moist Neck: Normal inspection. Neck supple. CVS: Normal heart rate and rhythm. Pulses normal. Respiratory: No respiratory distress. Equal air entry bilateral, no wheezing/rales/rhonchi Abdomen: Soft and mild epigastric tenderness Bowel sounds are present, no mass palpable, no CVA tenderness Skin: Skin warm and dry. Normal skin color. Normal skin turgor. Extremities: No lower extremity edema. No calf tenderness Neuro: Oriented X 3. No motor deficit. No sensory deficit.No cerebellar signs , cranial nerves II-XII intact MDM - Chest Pain MDM Narrative Medical decision making narrative: Patient has atypical chest pain 2 sets of high sensitive troponin negative EKG normal likely from gallstone at this time patient is feeling much better will discharge him home Lab Data Attestation: I reviewed the patient's lab results. Result diagrams: 12/03/20 17:56 12/03/20 17:56 Labs: Lab Results 12/03/20 12/03/20 12/03/20 Range/Units 17:56 17:56 17:56 WBC 7.9 (4.8-10.8) X10*3/uL RBC 5.03 (4.60-5.80) X10*6/uL Hgb 12.8 L (14.0-18.0) g/dl Hct 40.4 L (42-52) % MCV 80.3 (80-98) fL MCH 25.4 L (27.0-33.0) pg MCHC 31.7 (31.0-36.0) g/dl RDW 15.4 (11.0-16.0) % Plt Count 383 (160-400) X10*3/uL MPV 9.7 (9.4-12.4) fL Immature Gran % (Auto) 0.4 (0.0-0.4) % Neut % (Auto) 71.8 (45-73) % Lymph % (Auto) 15.5 L (20-40) % [place] % (Auto) 11.3 H (2-11) % Eos % (Auto) 0.6 (0-4) % Baso % (Auto) 0.4 (0-2) % Lymph # (Auto) 1.2 (1.2-4.9) X10*3/uL [place] # (Auto) 0.9 (0.1-1.2) X10*3/uL Eos # (Auto) 0.1 (0.0-0.4) X10*3/uL Baso # (Auto) 0.0 (0.0-0.2) X10*3/uL Abs Immat Gran (auto) 0.03 (0.00-0.03) X10*3/uL Absolute Neuts (auto) 5.7 (2.0-8.3) X10*3/uL Absolute Nucleated RBC 0.000 (0.0-0.012) X10*3/uL Nucleated RBC % (auto) 0.0 (0.0-0.2) /100WBC Hold Blue Top SEE NOTE Sodium 140 (135-145) mmol/L Potassium 4.4 (3.3-5.1) mmol/L Chloride 106 (96-108) mmol/L Carbon Dioxide 26 (22-29) mmol/L Anion Gap 12 (12-20) BUN 8 L (9-16) mg/dL Creatinine 0.73 (0.5-1.4) mg/dL Estim Creat Clear Calc 332.4 Estimated GFR > 60 Random Glucose 102 (60-115) mg/dL Calcium 9.2 (8.4-10.2) mg/dL Troponin I High Sens (<3.5-35.0) ng/L 12/03/20 12/03/20 Range/Units 17:56 20:21 WBC (4.8-10.8) X10*3/uL RBC (4.60-5.80) X10*6/uL Hgb (14.0-18.0) g/dl Hct (42-52) % MCV (80-98) fL MCH (27.0-33.0) pg MCHC (31.0-36.0) g/dl RDW (11.0-16.0) % Plt Count (160-400) X10*3/uL MPV (9.4-12.4) fL Immature Gran % (Auto) (0.0-0.4) % Neut % (Auto) (45-73) % Lymph % (Auto) (20-40) % [place] % (Auto) (2-11) % Eos % (Auto) (0-4) % Baso % (Auto) (0-2) % Lymph # (Auto) (1.2-4.9) X10*3/uL [place] # (Auto) (0.1-1.2) X10*3/uL Eos # (Auto) (0.0-0.4) X10*3/uL Baso # (Auto) (0.0-0.2) X10*3/uL Abs Immat Gran (auto) (0.00-0.03) X10*3/uL Absolute Neuts (auto) (2.0-8.3) X10*3/uL Absolute Nucleated RBC (0.0-0.012) X10*3/uL Nucleated RBC % (auto) (0.0-0.2) /100WBC Hold Blue Top Sodium (135-145) mmol/L Potassium (3.3-5.1) mmol/L Chloride (96-108) mmol/L Carbon Dioxide (22-29) mmol/L Anion Gap (12-20) BUN (9-16) mg/dL Creatinine (0.5-1.4) mg/dL Estim Creat Clear Calc Estimated GFR Random Glucose (60-115) mg/dL Calcium (8.4-10.2) mg/dL Troponin I High Sens < 3.5 < 3.5 (<3.5-35.0) ng/L ECG Data ECG #1: Attestation: I personally reviewed and interpreted this ECG as follows: Interpretation: Normal sinus rhythm heart rate 99 beats per minute nonspecific T-wave changes normal intervals normal axis no acute ischemia Discharge Plan Discharge Clinical Impression: Atypical chest pain Patient Disposition: Home, Self-Care Instructions: Chest Pain (ED) Additional Instructions: The chest pain is not from the heart. Take ibuprofen for pain Follow up with PCP Prescriptions: No Action nitrofurantoin monohyd/m-cryst [Macrobid] 100 mg capsule 100 mg PO Q12H 5 Days Qty: 10 RF: 0 ondansetron HCl [Zofran] 4 mg tablet 4 mg PO Q8H PRN (Reason: nausea and vomiting) Qty: 10 RF: 0 omeprazole magnesium [Prilosec OTC] 20 mg tablet,delayed release (DR/EC) 20 mg PO DAILY 14 Days Qty: 14 RF: 0 hydrochlorothiazide 12.5 mg capsule 12.5 mg PO QAM RF: 0 Metamucil 3.4 gram/5.4 gram powder 1 tbsp PO DAILY 30 Days Qty: 660 RF: 0 Interventions: ED Discharge Assessment Last Done: 12/03/20 22:55 Discharge Date/Time: 12/03/20 22:56
--- NOTE | 2020-12-03 22:46 | PC.NURSE ---
MD at bedside discussing results and plan for DC home.
[2020-12-03] MEDS: Ibuprofen 600 MG TABLET PO (22:52)
--- NOTE | 2020-12-03 22:53 | PC.NURSE ---
Pt medicated per MAR.
== END 2020-12-03 22:56 | disposition home or self-care (01) ==
PROVIDERS: Emergency Provider Internal Medicine; PCP Internal Medicine
DX: R07.89 Other chest pain (principal); I10 Essential (primary) hypertension; Z79.899 Other long term (current) drug therapy
CPT/HCPCS: 36415; 71045; 80048; 84484; 85025; 93005; 99283; 99284

== ENCOUNTER 2023-06-04 09:57 | Outpatient (AMB) | payer OTHER, SELFPAY ==
--- NOTE | 2023-06-04 09:59 | MHC.PC.OV ---
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 Assistant Required: No Accompanied by: Self / Same As Patient Allergies No Known Allergies [No Known Allergies*] Allergy (Verified 06/04/23 11:11) Medication List - Last Reconciled 06/04/23 by Fran Cheema MD No Known Home Meds Tobacco use date assessed: 06/04/23 Dental Screening Dental Screen Date: 06/04/23 Did you have a dental visit in the last 12 months?: No Did you have a dental problem in the last 6 months where you did not have access to dental care?: No Was dental information given to patient?: Patient has dentist HPI ELECTRONICS SPECIALIST/ reestablish care HPI Details Patient comes in today to reestablish care - was last seen over 2 years ago in 07/2019 States that he continues to struggle with recurrent ingrown toenails and presently has one on his left big toe - would like to get a referral to see podiatry again for this issue Adds that he had gallbladder surgery done back in December 2022 at [facility] Was reportedly advised that he developed hypoxemia during his cholecystectomy and he is advised to speak with his PCP about getting a sleep study done to check him out for CHRISTIE Patient states that he feels okay He denies any headaches or dizziness Denies any chest pains, no SOB No nausea/vomiting, no abdominal pain No change in bowel habits noted He denies any acute urinary symptoms [facility] Medical History (Updated 06/06/23 @ 17:55 by Fran Cheema MD) Morbid obesity with BMI of 50.0-59.9, adult Abnormal liver enzymes Morbid obesity Morbid obesity [place] Hypertension Hospital discharge follow-up HTN (hypertension) Surgical History (Updated 06/04/23 @ 11:09 by Fran Cheema MD) Hx of cholecystectomy (~12/28/22) History of tonsillectomy History of hernia surgery Family History Father Diabetes Hypertension Mother Diabetes Hypertension Maternal Grandmother Cancer Maternal Uncle Stroke Social History Household Members: Family Both parents involved: Yes Housing: House Alcohol intake: current Alcohol intake frequency: holidays/special occasions only e-Cigarette/Vaping Use: Never Used Substance Use Type: Marijuana service: No Current occupational status: employed Cognitive needs: No Hearing needs: No Vision needs: No Questionnaire PHQ-9 Over the last 2 weeks, how often have you been bothered by any of the following problems? 1. Little interest or pleasure in doing things: not at all 2. Feeling down, depressed, or hopeless: not at all 3. Trouble falling or staying asleep, or sleeping too much: not at all 4. Feeling tired or having little energy: not at all 5. Poor appetite or overeating: not at all 6. Feeling bad about yourself - or that you are a failure or have let yourself or your family down: not at all 7. Trouble concentrating on things, such as reading the newspaper or watching television: not at all 8. Moving or speaking so slowly that other people could have noticed. Or the opposite - being so fidgety or restless that you have been moving around a lot more than usual: not at all 9. Thoughts that you would be better off or of hurting yourself in some way: not at all Total score: 0 Depression Screening Interpretation: Negative Depression Screening Done: Yes 10546 - PHQ-9 Billing: Yes Source: Developed by Drs. Medhat Lundberg, Yany Esquivel, Micha Bourgeois and colleagues, with an educational gaby from [employer]. Thrive Questionnaire Date Thrive assessed: 06/04/23 I am a: Patient What is your living situation today?: I have a steady place to live Within the past 12 months, did the food you bought not last and you didn't have the money to get more?: Never true Within the past 12 months, did you worry whether your food would run out before you got money to buy more?: Never true Do you have trouble paying for medicines?: No Do you have trouble getting transportation to medical appointments?: No Do you have trouble paying your heating and electricity bill?: No Do you have trouble taking care of your child, family member or friend?: No Do you have trouble with day-to-day activities such as bathing, preparing meals, shopping, managing finances, etc.?: No Are you currently unemployed and looking for a job?: No Are you interested in more education?: No Please select the resources that you would like help with: None Currently or been in a relationship where the following occur: no concerns reported AUDIT C Alcohol Use Questionnaire (AUDIT-C) 1. How often do you have a drink containing alcohol?: Never 2. How many drinks containing alcohol do you have on a typical day when you are drinking?: 1 or 2 (0) 3. How often do you have six or more drinks on one occasion?: Never (0) Total Score: 0 Score Reviewed/Action Taken: Yes JOSH-7 AMB Questionnaire JOSH-7 Date JOSH - 7 assessed: 06/04/23 Feeling nervous, anxious, or on edge: 0 = Not at all Not being able to stop or control worryin = Not at all Worrying too much about different things: 0 = Not at all Trouble relaxin = Not at all Being so restless that it is hard to sit still: 0 = Not at all Becoming easily annoyed or irritable: 0 = Not at all Feeling afraid as if something awful might happen: 0 = Not at all Total JOSH-7 score (0-4 normal; 5-9 mild; 10-14 moderate; 15-21 severe): 0 Source: Developed by Drs. Medhat Lundberg, Yany Esquivel, Micha Bourgeois and colleagues, with an educational gaby from [employer]. Review of Systems Const Denies chills, Denies fatigue, Denies fever(s), Denies headache(s), Denies malaise and Denies weakness Eyes Denies blurry vision, Denies change in vision, Denies irritation and Denies itchy eyes ENT Denies dysphagia, Denies dizziness, Denies otalgia, Denies headache(s), Denies nasal congestion, Denies neck pain, Denies odynophagia and Denies sore throat Card Denies chest pain, Denies rapid heart rate, Denies irregular heart rhythm, Denies palpitations and Denies dyspnea Resp Denies chest congestion, Denies cough, Denies dyspnea and Denies wheezing GI Denies abdominal pain, Denies bloating, Denies constipation, Denies dysphagia, Denies heartburn, Denies diarrhea, Denies nausea, Denies odynophagia and Denies vomiting Denies hematuria, Denies difficulty urinating, Denies dysuria, Denies urinary frequency and Denies urinary urgency Musc Denies back pain, Denies arthralgias, Denies joint swelling, Denies muscle weakness and Denies neck pain Skin/Breast Details: (+) ingrown toenail of the left big toe Denies change in pigmentation, Denies lesions, Denies rash and Denies unusual bruising Neuro Denies dizziness, Denies headache(s), Denies paresthesias and Denies weakness Endo Denies fatigue and Denies palpitations Aller/Immun Denies itchy eyes and Denies wheezing Physical exam (Primary Care) Vital Signs: Last Vital Signs Pulse 93 06/04/23 10:00 BP 138/82 06/04/23 10:00 Pulse Ox 95 06/04/23 10:00 Oxygen Delivery Method Room Air 06/04/23 10:00 BMI result Body Mass Index 55.9 Tobacco/Smoking Status: Tobacco use Status Tobacco use date assessed 06/04/23 06/04/23 10:02 e-Cigarette/Vaping Use Never Used 06/04/23 10:02 PHQ-9: PHQ-9 Score PHQ-9: Total score 0 06/04/23 11:08 Depression Screening Interpretation: Negative Thrive Assessment: Date of Thrive Assessment Date Thrive assessed 06/04/23 06/04/23 10:02 Currently or been in a relationship where the following occur: no concerns reported Const General: no acute distress, alert and awake Orientation/consciousness: patient oriented x3 HENMT Head: Yes normocephalic and Yes atraumatic Ears: external ears normal, TM's normal bilaterally and EAC's normal General nose exam: No nasal discharge present Face and sinus: Yes normal facial exam and Yes sinuses nontender Teeth and gingiva: dentition normal Throat: Yes posterior oropharynx normal and Yes tonsils normal (no TP congestion) Eyes Eyelids: Yes eyelids normal Conjunctivae: conjunctivae normal Pupils: Equal, round and reactive pupils present EOM: EOMs intact bilaterally Neck Neck: Yes no lymphadenopathy and Yes supple Thyroid: Thyroid normal Resp Auscultation: clear to auscultation bilaterally, no rales and no wheezes Cardio Rate: regular rate Rhythm: regular rhythm Heart sounds: no murmurs GI Palpation (GI): Soft to palpation, nontender and No hepatosplenomegaly present Auscultation: normal bowel sounds General: Yes no CVA tenderness Back/Spine/Pelvis Back: no CVA tenderness Thoracic/Lumbar Spine: thoracic and lumbar spine normal to inspection Skin Lesions: no lesions Rashes: no rashes Neuro General: patient oriented x3, moves all extremities, no focal motor deficits and CN's II-XI intact bilaterally Cranial nerves: Yes Equal, round and reactive pupils present Cognition (Neuro): normal cognition Gait exam (Neuro): Normal gait present Extrem General: Yes no clubbing, cyanosis or edema Left lower extremity: foot ((+) ingrown nail over the lateral side of the big toe on the left foot) Assessment and Plan Assessment & Plan (1) Annual physical exam: Code(s): Z00.00 - Encounter for general adult medical examination without abnormal findings Plan: Check labs (2) Elevated blood pressure reading: Code(s): R03.0 - Elevated blood-pressure reading, without diagnosis of hypertension Plan: Reinforced low sodium diet Advised that his systolic BP should ideally be less than 120 mm; discussed that it is currently higher than normal and may be related to his weight as well as diet Patient is instructed to have his blood pressure monitored regularly (3) Anemia: Code(s): D64.9 - Anemia, unspecified Qualifiers: Anemia type: unspecified type Qualified Code(s): D64.9 - Anemia, unspecified Plan: He has been noted to have mild anemia chronically on his past labs; there is also mild hypochromia frequently but no microcytosis noted Will send him for Hgbelectrophoresis for further evaluation (4) Ingrown toenail of left foot: Code(s): L60.0 - Ingrowing nail Plan: Will refer him to podiatry for further evaluation and management of his recurrent ingrown toenail (5) Hypoxemia during surgery: Code(s): I97.88 - Other intraoperative complications of the circulatory system, not elsewhere classified; R09.02 - Hypoxemia Plan: Will refer him to Sleep Medicine for further evaluation and management - suspect that he may have some degree of CHRISTIE (6) Morbid obesity with BMI of 50.0-59.9, adult: Code(s): E66.01 - Morbid (severe) obesity due to excess calories; Z68.43 - Body mass index [BMI] 50.0-59.9, adult Plan: Reinforced diet/exercise as tolerated/lose weight Plan Follow up in 6 months Orders: Orders Complete Blood Count Auto Diff 06/04/23 E66.01 - Morbid (severe) obesity due to excess calories, Z00.00 - Encounter for general adult medical examination without abnormal findings, Z68.43 - Body mass index [BMI] 50.0-59.9, adult Lipid Panel 06/04/23 E66.01 - Morbid (severe) obesity due to excess calories, E78.00 - Pure hypercholesterolemia, unspecified, Z00.00 - Encounter for general adult medical examination without abnormal findings, Z68.43 - Body mass index [BMI] 50.0-59.9, adult TSH reflex Free T4 06/04/23 E66.01 - Morbid (severe) obesity due to excess calories, Z00.00 - Encounter for general adult medical examination without abnormal findings, Z68.43 - Body mass index [BMI] 50.0-59.9, adult UA CC w/rflx Micro + Cult 06/04/23 E66.01 - Morbid (severe) obesity due to excess calories, R30.0 - Dysuria, Z00.00 - Encounter for general adult medical examination without abnormal findings, Z68.43 - Body mass index [BMI] 50.0-59.9, adult Comprehensive [place]. Panel Fast 06/04/23 E66.01 - Morbid (severe) obesity due to excess calories, Z00.00 - Encounter for general adult medical examination without abnormal findings, Z68.43 - Body mass index [BMI] 50.0-59.9, adult Vitamin D 25-OH Total 06/04/23 E55.9 - Vitamin D deficiency, unspecified, E66.01 - Morbid (severe) obesity due to excess calories, Z00.00 - Encounter for general adult medical examination without abnormal findings, Z68.43 - Body mass index [BMI] 50.0-59.9, adult Hemoglobin Electrophoresis 06/04/23 D64.9 - Anemia, unspecified Referrals Podiatry Referral L60.0 - Ingrowing nail Sleep Medicine Referral E66.01 - Morbid (severe) obesity due to excess calories, I97.88 - Other intraoperative complications of the circulatory system, not elsewhere classified, R09.02 - Hypoxemia, Z68.43 - Body mass index [BMI] 50.0-59.9, adult Coding Level of Care Code New Pt Prev Care [id number] Diagnoses Annual physical exam Z00.00 Elevated blood pressure reading R03.0 Anemia, unspecified type D64.9 Anemia type: unspecified type Ingrown toenail of left foot L60.0 Hypoxemia during surgery I97.88; R09.02 Morbid obesity with BMI of 50.0-59.9, adult E66.01; Z68.43
[2023-06-04 10:00] VITALS: BP 138/82; PULSE 93; O2SAT 95; BMI 55.9
== END 2023-06-04 11:17 | disposition home or self-care (01) ==
PROVIDERS: PCP Internal Medicine; Visit Provider Internal Medicine
DX: Z00.00 Encounter for general adult medical examination without abnormal findings (principal); E66.01 Morbid (severe) obesity due to excess calories; Z68.43 Body mass index [BMI] 50.0-59.9, adult; R03.0 Elevated blood-pressure reading, without diagnosis of hypertension; D64.9 Anemia, unspecified; L60.0 Ingrowing nail; I97.88 Other intraoperative complications of the circulatory system, not elsewhere classified; R09.02 Hypoxemia
CPT/HCPCS: 99385